=== PATIENT | male | born 1950 | race Caucasian/White ===

== ENCOUNTER 2017-01-18 16:14 | Inpatient (IN) | payer MEDICARE, MEDICAID ==
[~2017-01-18] VITALS: Ht 177.8 cm; Wt 65.8 kg
--- NOTE | ~2017-01-18 | FU ---
[facility] Nutrition Therapy DATE: 01/28/17 Patient: SHILA PEOPLES Physician: LISETTE Address: [address] [place] [address] Room/Bed: [address] [place] [address], Zip: [place] [address] Admit Date: 01/18/17 Date of : 50 Height: 5 10 Weight: 145 65.8 NUTRITION MONITORING/FOLLOW-UP: Reason: PT SEEN FOR FOLLOW-UP DX: BLADDER MASS Anthropometrics: 5'10", WT: 145# (65.9 KG), BMI: 20.8 -ADMIT WEIGHT: 145#-STABLE WEIGHTS Labs: NO UPDATED LABS SINCE RD ASSESSMENT ON 01/25/17 Meds: PROTONIX, ZOFRAN, LOVENOX I&O's: 600/855 Skin: NEW OSTOMY ABD Assessment: CHART REVIEWED AND EVENTS NOTED. PT SEEN FOR FOLLOW-UP. PT AWAKE REPORTING APPETITE IMPROVING, NOTING BEING ABLE TO TOLERATE PO INTAKE. PT HAD BREAKFAST TRAY AT BEDSIDE-NOTED PT ATE ~75% OF MEAL. OF NOTE, PT RECEIVING REGULAR DIET. THIS RD ENCOURAGED SLOW GRADUAL PO INTAKE, PT AGREED TO GLUCERNA SHAKES BID, RD TO ORDER. PT REPORTED NO DIET QUESTIONS AT THIS TIME. PLANS IN PLACE FOR HOME IN 1-[address] TO REMAIN AVAILABLE. Dx: 1. UNDERWEIGHT R/T LIFESTYLE, PMH AEB LOW BODY WEIGHT, 87%IBW.-ACTIVE 2. ALTERED NUTRIENT NEEDS R/T CURRENT DIAGNOSIS, CURRENT CLINICAL CONDITION AEB NPO/CLEARS X 5 DAYS.-RESOLVED Intervention: 1. REGULAR DIET 2. AFTAB GLUCERNA SHAKES BID Monitoring, Evaluation and Goals: 1. ORAL INTAKE; ADVANCE DIET AND CONSUME/TOLERATE >50% OF MEALS-MET/IN PROGRESS 2. WEIGHTS; PROMOTE HEALTHY WEIGHT MAINTENANCE; PREVENT WEIGHT [id number] HAVE REMAINED STABLE SINCE ADMIT 3. LABS; WNL-IN PROGRESS (NO UPDATED LABS SINCE ASSESSMENT ON 01/25/17) MONITOR: -PO INTAKE/APPETITE -WEIGHTS -SUPPLEMENT INTAKE Recommendations: 1. PLEASE ORDER AFTAB GLUCERNA SHAKES BID W/MEALS [facility] Nutrition Therapy DATE: 01/28/17 Patient: SHILA PEOPLES Physician: LISETTE Address: [address] [place] [address] Room/Bed: [address] [place] [address], Zip: [place] [address] Admit Date: 01/18/17 Date of : [birth year] Height: 5 10 Weight: 145 65.8 2. IF PO INTAKE >50%, RECOMMEND TO CHANGE CURRENT DIET ORDER CC/HH 2'PMH 3. CONTINUE TO ENCOURAGE ADEQUATE PO INTAKE RD WILL F/U PER PROTOCOL PT IS MILDLY COMPROMISED Respectfully, DMITRY SEVILLA MS, RD, LD Food and Nutritional Services [facility] cc: client file
--- NOTE | ~2017-01-18 | OR ---
Unit #: [id number] #: [id number] Patient: SHILA PEOPLES [id number] [address] [address] [id number] I MR#: [id number] NAME: SHILA PEOPLES ROOM: 227 Date of Procedure: 01/21/2017 Admission Date: 01/18/2017 Surgeon: Griffin Galindo M.D. : 1950 Attending Physician: Collette Boateng M.D. Primary Care Physician: Primary Care Physician No OPERATIVE REPORT PREOPERATIVE DIAGNOSES Muscle invasive bladder cancer, bilateral hydronephrosis, gross hematuria. POSTOPERATIVE DIAGNOSES Muscle invasive bladder cancer, bilateral hydronephrosis, gross hematuria. PROCEDURES PERFORMED Cystoprostatectomy, ileal conduit urinary diversion, bilateral pelvic lymphadenectomy. COURIER DRIVER Mercy Pena. ANESTHESIA General. ESTIMATED BLOOD LOSS 400 mL. FLUIDS Crystalloid, 2 units of packed red blood cells. DRAINS 15-Lithuanian Adarsh drain, ureteroenteric conduit stents bilaterally. COMPLICATIONS None. SPECIMENS Bilateral pelvic lymph nodes, prostate, bladder, bilateral ureteral margins for frozen section. CONDITION Stable. INDICATIONS FOR PROCEDURE The patient has a history of muscle invasive bladder cancer, bilateral hydronephrosis, and gross hematuria, who presents today for cystoprostatectomy, ileal conduit urinary diversion, pelvic lymphadenectomy. The risks, benefits, and alternatives of the procedure were extensively counseled to the patient. Chief among these are bleeding, infection, anesthetic complications, wound complications, blood Unit #: [id number] #: [id number] Patient: SHILA PEOPLES clot, heart attack, stroke, , injury to bowel, blood vessel, nerves, urine leak, urine stricture, bowel leak, bowel stricture, residual recurrent disease, tumor spillage, and need for further procedure. All risks were explained. Questions were answered. Informed consent was obtained. The patient elected to proceed. DESCRIPTION OF PROCEDURE The patient was properly identified, brought back to the operating room, having received perioperative dose of cefotetan. The patient was placed on the operating room table in a supine position. Following induction of general anesthesia, indwelling Millan catheter was removed. The patient's abdomen was shaved, prepped, and draped in sterile fashion on the field. A Millan catheter was then sterilely placed in the urinary bladder. Contents of the bladder were drained. A lower midline incision was carried out with a 10 blade scalpel. Soft tissue dissection was carried out with Bovie electrocautery. The anterior rectus sheath was opened, ____ , the rectus muscle and linea alba. I entered the retroperitoneal space, ____ this with blunt dissection. We entered the abdomen lateral of the urachus of the bladder, which was taken with silk ties. The peritoneum lateral to the medial umbilical ligaments were taken down with Bovie electrocautery. We began by placing Bookwalter retractor blades into the abdomen, lifting the bowel away from our area of dissection. We began by incising the peritoneum adjacent to the cecum exposing the dilated ureter circumferentially dissecting around this and tracing this down cranially towards the kidney and caudally toward the hiatus. This was then clamped with a right-angle clip. The ureter was then cut, small amount was collected for frozen section, which was benign. This was then clipped and tied off to develop hydronephrosis to aid in our ureteral anastomosis. The ureter at the hiatus was then taken with an 0 silk tie. The silk was left long to help guide us as we came around the lateral pedicle. A similar procedure occurred on the left side without difficulty. Again, frozen section was benign. We incised the peritoneum just above the sigmoid and the cul-de-sac behind the bladder as well as seminal vesicles. We made a plane with blunt dissection underneath the bladder to the level of the prostate, across the Denonvilliers' fascia with blunt dissection, developing a plane posteriorly with blunt dissection to the apex of the prostate. I isolated the neurovascular bundles of the lateral pedicle. The lateral pedicles were then taken in piecemeal fashion with the LigaSure. We then came anteriorly, took the DVC with the LigaSure as well. The endopelvic fascia was then opened up lateral to the prostate with Bovie electrocautery. We used Bovie electrocautery to enter the urethra anteriorly distal to the apex of the prostate. Millan catheter was grasped on the right angle, doubly clamped and cut. The posterior urethra was cut with Bovie electrocautery and the remaining prostatic attachments were taken in a piecemeal fashion with Bovie electrocautery and the specimen was then passed off. Copiously irrigated the wound. There was bleeding from the DVC, oversewn with #1 Vicryl in a [id number]-[id number] fashion. No evidence of rectal injury. Pelvic lymphadenectomy was performed on both sides tubing the lymph tissue medial to the external iliac vein marked from the pubic going back towards the iliac bifurcation, skeletonized the obturator nerve on both sides. Clips were used for adequate hemostasis in this case. No evidence of obturator injury was appreciated. No evidence of particularly suspicious nodes were appreciated. We then turned our attention to our left ureter which was hydronephrotic that were being clipped, this was then brought under the sigmoid near the sacral promontory in proper lie and orientation bringing both of our ureters to the right lower quadrant. We identified Unit #: [id number] #: [id number] Patient: SHILA PEOPLES the terminal ileum, traced this back conduit in standard fashion using LUCERO staplers. The bowel anastomosis was then completed using a LUCERO stapler and TIA stapler ensuring proper lie and orientation of both the conduit and the mesentery. The bowel anastomosis was at least two fingerbreadths in width. We placed 3-0 silk stitch at the butt of our staple line at our bowel anastomosis. We closed our mesenteric window with interrupted 3-0 silk. Our conduit was then inspected. No evidence of ischemic injury. We identified the butt of our conduit, cut off the staple line near our skin end and irrigated with an Asepto any succus that remained. We used Metzenbaum scissors to made two enterotomies on both sides near the bladder of the conduit, spatulated our ureter using an angled Pascal scissors. The excess ureter was passed off and discarded. We then completed our ureteroenteric anastomosis in standard fashion using running 5-0 PDS. Prior to completion of the anastomosis, ureteral conduit stents were then passed up into the right kidney without difficulty. These were anchored to the skin end of the conduit with 3-0 chromic ties. These were then irrigated with return of clear yellow urine suggesting adequate placement. Our anastomoses were then completed. We then tested these anastomosis by irrigating with an Asepto. At this point, in the right lower quadrant, just lateral to the umbilicus, we used a Reji to lift up on the skin just below our previously marked stomal site and we used Bovie electrocautery to excise the skin and subcutaneous fat. We made a cruciate incision in the fasciotomy pre-placed 2-0 Vicryl stitches, split the belly of the rectus muscle entered the abdomen ensuring that our opening was at least two fingerbreadths in width. We used a large Anshul and ensured proper lie and orientation of the conduit mesentery to grab the skin end of the conduit and pulled this through to our skin. We then placed our pre-placed 2-0 Vicryl stitches to the conduit anchoring this to the fascia and completed our rincon stoma in standard fashion using 3-0 and 4-0 Vicryl. This was a nice looking stoma. No evidence of ischemia. There was good urine output from both stents at this time. We then reinspected our DVC, placed an additional DVC stitch with [id number] #1 Vicryl. We felt there was adequate hemostasis. Placed FloSeal in the bed of resection. Placed CLEVE drain in left lower quadrant through a small stab incision placing this in the pelvis. We then ensured that our sponge, instrument, and needle count was correct. We then closed our fasciotomy using [id number] #1 Vicryl. The skin was then closed with nicole. The patient tolerated the procedure well with no complications. Dictated by... Griffin Galindo M.D. BITA/tasia TD: 01/23/2017 14:54 JOB #: [id number] OPERATIVE REPORT Page 1 of 1 X Griffin Galindo MD X PROCEDURE OPERATIVE NOTE
--- NOTE | ~2017-01-18 | CT57 ---
[facility] A Service of [facility] RADIOLOGY TEXT RESULTS PATIENT: SHILA PEOPLES LOCATION: [facility] : [birth year] UNIT #: [id number] AGE: [address]: Collette Boateng MD SEX: M ORDER DR: [id number] [place], [place] [address] [id number] I MR#: [id number] Acc #: [id number] NAME: SHILA PEOPLES : 1950 SEX: M STUDY DATE/TIME: 01/19/2017 20:06 UNIT: A PCU ROOM: 325 STUDY DESCRIPTION: CT Chest Wo Cont Attending Physician: Collette Boateng M.D. Ordering Physician: Collette Boateng M.D. Primary Care Physician: Primary Care Physician No MEDICAL IMAGING REPORT This report is preliminary unless electronic signature is present EXAM CT chest without contrast HISTORY 66-year-old male, shortness of air on exertion for 2 days. History of COPD. TURP procedure completed today, bladder mass. FINDINGS Axial images performed through the chest without contrast. Multiplanar reconstructions were reviewed. This CT exam was performed with one or more of the following radiation dose reduction techniques: automatic exposure control, adjustment of mA and/or kV according to patient size, and iterative reconstruction. There is pulmonary hyperinflation and hyperlucency with central lobular cystic changes compatible with underlying emphysema. No acute airspace disease or consolidation. No masses. There is a small amount of density in the right posterior lung but no discrete nodule. No effusions. Mild tracheobronchomegaly compatible with emphysema. Heart, aorta and pulmonary vessels unremarkable. Calcified left hilar nodes. Upper abdomen remarkable for bilateral hydronephrosis. Osseous structure, thoracic inlet unremarkable. IMPRESSION 1. No acute intrathoracic abnormality. 2. Moderate centrilobular emphysema. 3. Bilateral hydronephrosis. Dictated by... [facility] A Service of [facility] RADIOLOGY TEXT RESULTS PATIENT: SHILA PEOPLES LOCATION: [facility] : 50 UNIT #: [id number] AGE: [address]: Collette Boateng MD SEX: M ORDER DR: Marilyn Callahan M.D. THIS IS AN ELECTRONICALLY VERIFIED REPORT Marilyn Callahan M.D. at 01/21/2017 5:39 PM Jozef TD: 01/19/2017 22:23 JOB #: [id number] MEDICAL IMAGING REPORT Page 1 of 1 COPY
--- NOTE | ~2017-01-18 | CO ---
Unit #: [id number] #: [id number] Patient: SHILA PEOPLES [id number] [address] [address] [id number] I MR#: [id number] NAME: SHILA PEOPLES ROOM: 227 Age: 66 Sex: M Admission Date: 01/18/2017 : 1950 Attending Physician: Collette Boateng M.D. Primary Care Physician: Primary Care Physician No Consultation Date: 01/22/2017 CONSULTATION REPORT REASON FOR CONSULTATION Hypocalcemia. HISTORY OF PRESENT ILLNESS The patient is a 66-year-old white male, who is a known case of hypertension and chronic smoking, admitted with bilateral hydronephrosis and bladder tumor with Urology evaluation and underwent prostatectomy and cystectomy with ileal conduit. The patient also had ureteral stent placement initially, also history of hypertension and type 2 diabetes. The patient noted to have a potassium level of 6.9. We have been asked to follow up and advice on management. PAST MEDICAL HISTORY Significant for diabetes, hyperlipidemia, hypertension, history of chronic smoking, bladder CA. PAST SURGICAL HISTORY Underwent cystectomy, prostatectomy, and ileal conduit. HOME MEDICATIONS Include ibuprofen. ALLERGIES To penicillin. SOCIAL HISTORY Lives with his son and smoked 2-1/2 packs a day. Does not drink. FAMILY HISTORY Significant for dementia and type 2 diabetes. REVIEW OF SYSTEMS CVS: No chest pain. RESPIRATORY: No cough or expectoration. GI: As above. : As above. PHYSICAL EXAMINATION GENERAL: The patient is awake, alert, and oriented. VITAL SIGNS: Blood pressure is 110/50, O2 saturations 97%, heart rate is 80 per minute. HEENT: Head is atraumatic. Extraocular movements are intact. Sclerae are anicteric. Nose; no discharge. Ears; no discharge. NECK: Supple. There is no elevation of JVD. Unit #: [id number] #: [id number] Patient: SHILA PEOPLES CHEST: Clear. Air entry is equal bilaterally. Breathing is vesicular in nature. HEART: S1 and S2 audible. ABDOMEN: Soft. There is no organomegaly. No guarding. No rigidity. No rebound or tenderness. There is an ileal conduit with clear urine in the bag. EXTREMITIES: There is no edema. MECHANIC INSULATOR: Motor system is intact. Cerebellar system is intact. DIAGNOSTIC STUDIES LABORATORY RESULTS: Significant for sodium 141, potassium 3.8, chloride 113, CO2 22, BUN 20, creatinine 1.3, calcium 6.4, glucose 142. WBC is 5.2, H and H are 7.5 and 22.1 with a platelet count of 121, the patient getting blood transfusion. Albumin level is 2.6. IMPRESSION 1. Hypocalcemia, possibly an iatrogenic with blood transfusion causing the hypocalcemia. Check for vitamin D deficiency. Supplement calcium. We will follow the levels. Also, we will check ionized calcium. We will follow the patient with you. 2. Hypertension. 3. Diabetes. 4. Status post ileal conduit, prostatectomy, cystectomy for bladder cancer. Previous history of bilateral hydronephrosis. Acute kidney disease, resolving. 5. Acute kidney disease secondary to hydronephrosis improving with hydration and relief of obstruction. 6. Anemia. Dictated by... Shanell East TD: 01/23/2017 17:46 JOB #: [id number] CONSULTATION REPORT Page 1 of 1 X Clint Dickinson MD X CONSULTATION REPORT
--- NOTE | ~2017-01-18 | HP ---
Unit #: [id number] #: [id number] Patient: SHILA PEOPLES [id number] [place], [place] [address] [id number] I MR#: [id number] NAME: SHILA PEOPLES ROOM: 325 Age: 66 Sex: M Admission Date: 01/18/2017 : 1950 Attending Physician: Collette Boateng M.D. Primary Care Physician: No Primary Care Physician HISTORY AND PHYSICAL CHIEF COMPLAINT Blood in the urine. HISTORY OF PRESENT ILLNESS The patient is a 66-year-old male with no significant past medical history who presented to the emergency department for evaluation of the above. The patient states that he has had blood in the urine intermittently for the past six months to a year. He states that he has been passing blood clots at times. He also reports difficulty voiding due to the large clots. He also has had burning with urination. He denies any fever. He states that he has had pain in his lower abdomen that he describes as "throbbing." He denies any cough or cold symptoms, no chest pain. He states that he has been taking ibuprofen as well as ProstEase with no relief. In the emergency department, urinalysis showed findings concerning for urinary tract infection. Hemoglobin is 11.8. CT of the abdomen and pelvis shows a lobulate bladder mass, likely causing obstruction at the ureterovesicular junctions bilaterally with associated severe hydronephrosis. He was given a gram of Rocephin in the emergency department. Dr. Galindo of urology agreed to see the patient in consultation. He is being admitted to [facility] for evaluation and further treatment. PAST MEDICAL HISTORY The patient denies recent hospitalization. PAST SURGICAL HISTORY None. SOCIAL HISTORY The patient lives with his son. He smokes a pack and a half of cigarettes daily. He denies alcohol or illicit drug use. He is retired from a [employer] company. FAMILY HISTORY Notable for his mother having dementia. His dad had diabetes as well as a pacemaker. ALLERGIES Penicillin causes feelings of "dizziness." HOME MEDICATIONS Unit #: [id number] #: [id number] Patient: SHILA PEOPLES Ibuprofen as well as ProstEase. REVIEW OF SYSTEMS The patient states that he has been taking ibuprofen, anywhere from three to six tablets daily. DIAGNOSTIC STUDIES IMAGING: CT of the abdomen and pelvis shows a lobulated bladder mass causing obstruction at the UVJ bilaterally with severe hydronephrosis. LABORATORY: Complete blood count notable for hemoglobin and hematocrit of 11.8 and 34.3 respectively. Comprehensive metabolic panel notable for BUN and creatinine of 19 and 1.5 respectively. Urinalysis notable for 2+ leukocyte esterase, positive nitrates with 3+ protein, 4+ blood with innumerable red blood cells, 5-10 white blood cells, 1+ bacteria and a few squamous cells. INR is 1. PHYSICAL EXAMINATION VITAL SIGNS: Temperature is 98.4, pulse 103, respirations 16, blood pressure 165/115, most recently 148/78. Oxygen saturation is 100% on room air. GENERAL: The patient is a very pleasant male who is awake and alert, in no acute distress. HEENT: The head is atraumatic. Mucous membranes are moist. NECK: Supple. Trachea is midline. CARDIOVASCULAR: Regular rate and rhythm. LUNGS: Clear to auscultation bilaterally with no increased work of breathing. ABDOMEN: Soft. He is mildly tender to palpation in the suprapubic area. Bowel sounds are present in all four quadrants. EXTREMITIES: Nontender with no pedal edema. NEURO: The patient is awake and alert. He follows commands. PSYCH: Mood and affect are normal. The patient is cooperative. SKIN: Skin of examined areas is warm and dry. ASSESSMENT The patient is a 66-year-old male with: 1. Bladder mass concerning for malignancy. 2. Severe hydronephrosis. 3. Urinary tract infection: The patient received Rocephin in the emergency department. There are no urine cultures in [facility] for comparison. 4. Acute kidney injury: The patient's creatinine is 1.5. It was 1.1 on September 07, 2007. 5. Tobacco abuse. PLAN 1. Admit for observation to intermediate level. 2. Normal saline at 75 mL/hour. 3. Regular diet. 4. NPO after midnight for possible surgical intervention. 5. Place three-way Millan catheter and irrigate until clear. 6. Consult urology regarding bladder mass. 7. Blood cultures x2. 8. Urine culture and sensitivity on urine in the lab. Unit #: [id number] #: [id number] Patient: SHILA PEOPLES 9. Rocephin 1 gm IV daily pending results of urine culture. 10. P.r.n. morphine. 11. P.r.n. Zofran. 12. SCDs. 13. Repeat labs in the morning. 14. Additional workup and consultants based on above. Dictated by Shanell Macedo/stephanie TD: 01/19/2017 08:24 JOB #: [id number] HISTORY AND PHYSICAL Page 1 of 1 X Niesha Birmingham MD X HISTORY AND PHYSICAL
--- NOTE | ~2017-01-18 | A ---
[facility] Nutrition Therapy DATE: 01/25/17 Patient: SHILA PEOPLES Physician: LISETTE Address: [address] [place] [address] Room/Bed: [address] [place] [address], Zip: [place] [address] Admit Date: 01/18/17 Date of : [birth year] Height: 5 10 Weight: 145 65.8 NUTRITIONAL ASSESSMENT: REASON: NPO/CLEAR X 5 DAYS PT IS 66 Y.O. MALE ADMITTED FOR BLADDER MASS PMH: HTN, HLD, T2DM, BLADDER CA, SMOKER Anthropometrics: 5'10", WT: 145# (PER PT) (65.9 KG), BMI: 20.8, 87%IBW Labs: GLU: 120, NA+:131, CA+:8.1, ALB: 2.7, TGs: 179 Meds: PROTONIX, ZOFRAN, KCL I/O & Bowel function: 2485/2905 Skin Integrity: DRY SKIN NOTED ALL OVER BODY Estimated Nutrition Needs: INCREASED NEEDS 2' CURRENT CONDITION, PT LOW BODY WEIGHT Assessment: CHART REVIEWED AND EVENTS NOTED. PT SEEN FOR NPO/CLEAR DIET ORDER X 5 DAYS. PT IS POD #4 ILEAL CONDUIT, PROSTATECTOMY AND CYSTECTOMY FOR BLADDER CA. PT REPORTS "I AM STARVING". PT REPORTS USUAL GOOD/"NORMAL" PO INTAKE AND APPETITE PRIOR TO ADMIT, REPORTS SOME WEIGHT LOSS, NOTES UBW IS ~150#. NO CURRENT PLANS IN PLACE TO ADVANCE DIET, PER RN AND CHART. THIS RD ENCOURAGED SLOW GRADUAL PO INTAKE ONCE DIET ADVANCES, PT AGREED. PT REPORTED NO DIET QUESTIONS AT THIS TIME. RD TO FOLLOW. SEE RECOMMENDATIONS BELOW. Dx: 1. UNDERWEIGHT R/T LIFESTYLE, PMH AEB LOW BODY WEIGHT 87%IBW. 2. ALTERED NUTRIENT NEEDS R/T CURRENT DIAGNOSIS, CURRENT CLINICAL CONDITION AEB NPO/CLEAR X 5 DAYS. Intervention: 1. NPO Monitoring, Evaluation and Goals: 1. ORAL INTAKE; ADVANCE DIET AND CONSUME/TOLERATE >50% OF MEALS 2. WEIGHTS; PROMOTE HEALTHY WEIGHT MAINTENANCE; PREVENT WEIGHT LOSS 3. LABS; WNL MONITOR: -DIET ADVANCEMENT -PO INTAKE/APPETITE [facility] Nutrition Therapy DATE: 01/25/17 Patient: SHILA PEOPLES Physician: LISETTE Address: [address] [place] [address] Room/Bed: [address] [place] [address], Zip: [place] [address] Admit Date: 01/18/17 Date of : 50 Height: 5 10 Weight: 145 65.8 -WEIGHTS -LABS Recommendations: 1. ONCE MEDICALLY FEASIBLE, ADVANCE DIET TOLERATED TO HEALTHY HEART + CONSISTENT CARBOHYRDRATE 2' PMH, CURRENT CONDITION 2. PLEASE ORDER APPROPRIATE SUPPLEMENTATION ONCE DIET ADVANCES FOR ADDITIONAL PROTEIN AND KCAL 3. IF PT REMAINS NPO/CLEAR LIQUID, CONSULT RD FOR ALTERNATIVE NUTRITION SUPPORT RECOMMENDATIONS RD WILL F/U PER PROTOCOL PT IS MODERATELY COMPROMISED Respectfully, DMITRY SEVILLA MS, RD, LD Food and Nutritional Services [facility] cc: client file
--- NOTE | ~2017-01-18 | DS ---
Unit #: [id number] #: [id number] Patient: SHILA PEOPLES [id number] [address] [address] [id number] I MR#: [id number] NAME: SHIAL PEOPLES ROOM: 227 Age: 66 Sex: M Admission Date: 01/18/2017 : 1950 Discharge Date: 01/28/2017 Attending Physician: Collette Boateng M.D. Primary Care Physician: No Primary Care Physician DISCHARGE SUMMARY REASON FOR ADMISSION Gross hematuria. CT abdomen and pelvis showing bladder mass. HISTORY OF PRESENT ILLNESS/HOSPITAL COURSE The patient is a 66-year-old male, lifelong smoker of approximately 2-3 packs of cigarettes per day, who routinely was not following with any particular primary physician. He stated that he had hematuria for approximately three to four months prior to admission. It had worsened over the past several days prior to admission. He, therefore, presented to the hospital for further evaluation. Initial CT of the abdomen and pelvis was performed, which showed bladder mass as well as associated hydronephrosis. Consultation was placed to urology services, Dr. Galindo and saul, for evaluation. Through this hospital course the patient ultimately underwent cystoprostatectomy, ileal conduit, urinary diversion, as well as bilateral pelvic lymphadenectomy. Postoperatively he was maintained on routine medications as per surgery. He otherwise did well. He was gradually transitioned to p.o. medications. He has been cleared from a urological standpoint for discharge. It was also noted that the patient was hypocalcemic. We did place consultation to nephrology services, Dr. Marvin and associates saw and evaluated the patient. He initially was repleted with calcium and further laboratory studies were ordered and currently pending. At this point in time the patient is clinically stable for discharge. He will be followed by [facility] services. It is also recommended that he quit smoking altogether. He expressed understanding and agreement. He will follow up with Dr. Galindo of urology services in one to two weeks. No lifting. No driving for approximately two to three weeks or until seen by Dr. Galindo. Prescriptions were given for Bactrim DS 1 tablet p.o. b.i.d. times 7 days as well as Catharpin 5/325 mg 1-2 q.4 h. p.r.n. #30. Both prescriptions were given by urology. Prescription will also be given for Zoloft 50 mg on a daily basis. The patient will be discharged home in improved stable condition. FINAL DISCHARGE DIAGNOSES 1. Carcinoma of the bladder. 2. Associated hydronephrosis. 3. Hematuria on admission. 4. Tobacco abuse. 5. Status post ileal conduit placement urinary diversion. Unit #: [id number] #: [id number] Patient: SHILA PEOPLES Dictated by... Shanell Napoles/farhad TD: 01/30/2017 07:30 JOB #: [id number] DISCHARGE SUMMARY Page 1 of 1 X Collette Boateng MD X DISCHARGE SUMMARY
--- NOTE | ~2017-01-18 | CO ---
Unit #: [id number] #: [id number] Patient: SHILA PEOPLES [id number] [address] [address] [id number] I MR#: [id number] NAME: SHILA PEOPLES ROOM: 325 Age: 66 Sex: M Admission Date: 01/18/2017 : 1950 Attending Physician: Collette Boateng M.D. Primary Care Physician: Primary Care Physician No CONSULTATION REPORT CHIEF COMPLAINT Blood in urine. HISTORY OF PRESENT ILLNESS A 66-year-old gentleman with a history of heavy tobacco use, 6-month history of intermittent gross hematuria, worsened yesterday with clot, prompting visit to the emergency room at which time CT demonstrated a large bladder mass, bilateral hydronephrosis consistent with neoplasm. The patient's hematuria continued, occasional weakness of stream, hesitancy, intermittency over the last 6 months. No bone pain, weight loss, flank pain, fevers, or chills. PAST MEDICAL HISTORY As above. PAST SURGICAL HISTORY Cystoscopies. ALLERGIES Penicillin. MEDICATIONS None. SOCIAL HISTORY History of tobacco. No alcohol or recreational drugs. FAMILY HISTORY Liver cancer. REVIEW OF SYSTEMS The patient denies headache, vision change, hearing change, cough, sore throat, chest pain, shortness of breath, diarrhea, constipation, numbness or tingling in the extremities, rashes, or easy bruising. PHYSICAL EXAMINATION VITAL SIGNS: Afebrile. Vital signs stable. GENERAL: In no acute distress. HEENT: Normocephalic and atraumatic. Extraocular muscles intact grossly. Normal hearing to gross inspection. NECK: Soft, supple. No supraclavicular lymphadenopathy. RESPIRATORY: Normal respiratory effort. Normal to palpation. ABDOMEN: Soft, nontender, nondistended. No CVA tenderness. Unit #: [id number] #: [id number] Patient: SHILA PEOPLES EXTREMITIES: Full range of motion. Edema of bilateral extremities. PSYCHIATRIC: Normal mood and affect. NEUROLOGIC: Cranial nerves 2 through 12 grossly intact. DIAGNOSTIC STUDIES LABORATORY RESULTS: Creatinine 1.4. Alkaline phosphatase 60 within normal limits. Urinalysis, nitrite positive, innumerable red blood cells, 5 to 10 white blood cells, 1+ bacteria, a few epithelial cells. White blood cell count 5.4, hemoglobin 10.4. IMAGING STUDIES: CT of abdomen and pelvis reviewed hydronephrosis bilaterally, large bladder mass present. ASSESSMENT AND PLAN Bladder mass, hydronephrosis, renal failure, urinary tract infection, empiric antibiotics. Recommend transurethral resection, possible stent insertion. The risks, benefits, alternatives of the procedure were extensively counseled with the patient. Chief among these, bleeding, infection, inability to place stent, need for percutaneous nephrostomy tubes, bladder perforation, anesthetic complications. Informed consent was obtained. The patient elected to proceed. Dictated by... Griffin Galindo M.D. BITA/tasia TD: 01/19/2017 19:04 JOB #: [id number] CONSULTATION REPORT Page 1 of 1 X Griffin Galindo MD X CONSULTATION REPORT
--- NOTE | ~2017-01-18 | CT4 ---
[facility]. [facility] A Service of [facility] RADIOLOGY TEXT RESULTS PATIENT: SHILA PEOPLES LOCATION: [facility] : 50 UNIT #: [id number] AGE: [address]: Antonio Jernigan DO SEX: M ORDER DR: [id number] [facility] [address] [place], [place] [address] [id number] MR#: [id number] Acc #: [id number] NAME: SHILA PEOPLES : 1950 SEX: M STUDY DATE/TIME: 01/18/2017 17:20 UNIT: [facility] ROOM: STUDY DESCRIPTION: CT Abd and Pelv Wo Cont Attending Physician: Antonio Jernigan D.O. Ordering Physician: Antonio Jernigan D.O. Primary Care Physician: No Primary Care Physician MEDICAL IMAGING REPORT This report is preliminary unless electronic signature is present EXAM CT of abdomen and pelvis without contrast. HISTORY Right flank pain and hematuria for [address] exam was performed with one or more of the following radiation dose reduction techniques: automatic exposure control, adjustment of mA and/or kV according to patient size, and iterative reconstruction. FINDINGS CT abdomen and pelvis was performed without contrast. CT ABDOMEN: Moderate emphysema in both lung bases. Moderately severe bilateral hydronephrosis. Moderate bilateral ureteral dilatation. The liver, gallbladder, pancreas, and adrenal glands are normal. Normal caliber abdominal aorta. Borderline splenic enlargement. No bowel dilatation. CT PELVIS: Lobulated mixed density mass occupies the majority of the urinary bladder and measures nearly 5.5 cm x 7.5 cm. This contains probable small punctate and curvilinear calcifications. A hyperdense component along the anterior margin of this mass could be blood. Considerations include bladder neoplasm and bladder hematoma. Cystoscopy is recommended. The bladder lesion likely causes obstruction at the ureterovesical junctions bilaterally resulting in the severe bilateral hydronephrosis. No free fluid. No bowel dilatation. IMPRESSION 1. Lobulated mixed density bladder mass likely resulting in obstruction at the ureterovesical junctions bilaterally causing severe bilateral STS. [facility] A Service of [facility] RADIOLOGY TEXT RESULTS PATIENT: SHILA PEOPLES LOCATION: [facility] : 50 UNIT #: [id number] AGE: [address]: Antonio Jernigan DO SEX: M ORDER DR: hydronephrosis, and moderately severe bilateral ureteral dilatation. There are also curvilinear areas of calcification within the bladder along the mixed density bladder mass. Cystoscopy is recommended for further evaluation. The bladder lesion is concerning for neoplasm including transitional cell carcinoma. There may also be an element of hematoma within the urinary bladder. 2. No acute findings in the remainder of the abdomen or pelvis. 3. Moderate emphysema in the lung bases. Dictated by... Ankur Rowe M.D. THIS IS AN ELECTRONICALLY VERIFIED REPORT Ankur Rowe M.D. at 01/18/2017 8:44 PM IVAN/gissel TD: 01/18/2017 20:23 JOB #: [id number] MEDICAL IMAGING REPORT Page 1 of 1 COPY
--- NOTE | ~2017-01-18 | OR ---
Unit #: [id number] #: [id number] Patient: SHILA PEOPLES [id number] [address] [address] [id number] I MR#: [id number] NAME: SHILA PEOPLES ROOM: 325 Date of Procedure: 01/19/2017 Admission Date: 01/18/2017 Surgeon: Griffin Galindo M.D. : 1950 Attending Physician: Collette Boateng M.D. Primary Care Physician: Primary Care Physician No OPERATIVE REPORT PREOPERATIVE DIAGNOSES Bladder mass, bilateral hydronephrosis, and gross hematuria. POSTOPERATIVE DIAGNOSES Bladder mass, bilateral hydronephrosis, and gross hematuria with urethral stricture. PROCEDURES PERFORMED Cystourethroscopy, urethral dilation, and initial transurethral resection for bladder tumor, large. ANESTHESIA General. ESTIMATED BLOOD LOSS 50 mL. FLUIDS Crystalloid. DRAINS 22-Danish 3-way urethral Millan catheter. SPECIMENS Bladder clot and bladder mass for permanent. COMPLICATIONS None. CONDITION Stable. INDICATIONS FOR PROCEDURE The patient has a history of hematuria, who presented to the emergency room. CAT scan demonstrated large bladder mass and bilateral hydronephrosis. The patient presents today for cystoscopy, transurethral resection of bladder mass, and possible bilateral stent insertion. The risks, benefits, and alternatives of the procedure were extensively counseled to the patient. Chief among these were bleeding, infection, injury to surrounding soft tissue, need for further procedure, failure to place stent, need for percutaneous nephrostomy tube, bladder perforation, and anesthetic complications. Informed consent was obtained. The patient Unit #: [id number] #: [id number] Patient: SHILA PEOPLES elected to proceed. All risks were explained. Questions were answered. DESCRIPTION OF PROCEDURE The patient was properly identified, brought back to the cysto suite. He received preoperative dose of cephalosporins. The patient was placed on the cystoscopy table in supine position. Following induction of general anesthesia, the patient was placed in dorsal lithotomy position. Genitals were prepped and draped in sterile fashion. The cystoscope was introduced into the urethral meatus. Penile urethra was normal. Bulbar stricture with a pinpoint opening was appreciated. We passed a Sensor wire into the bladder under direct visualization. We used S-blue dilators to serially dilate the urethra. We introduced a continuous flow resectoscope. A large bladder mass obliterating the bladder neck and urinary trigone was appreciated with overlying bladder clot. We resected a great deal of this mass. This was very clearly muscle invasive, quite sessile in appearance, and truly unresectable given its large size. We resected a large amount of this, unable to visualize either ureteral orifices, fulgurated the base, evacuated the specimen, introduced a 22-Danish 3-way Millan catheter. CBI was started. The patient tolerated the procedure well with no complications. Dictated by... Shanell Bello/tasia TD: 01/19/2017 22:50 JOB #: [id number] OPERATIVE REPORT Page 1 of 1 X Griffin Galindo MD X PROCEDURE OPERATIVE NOTE
--- NOTE | ~2017-01-18 | EKG ---
PATIENT: SHILA PEOPLES UNIT #: [id number] Ventricular Rate: 78 BPM Atrial Rate: 78 BPM P-R Interval: 160 ms QRS Duration: 86 ms Q-T Interval: 366 ms QTC Calculation(Bezet): 417 ms P [place]: 63 degrees Calculated R [place]: 75 degrees Calculated T [place]: 45 degrees Diagnosis Line: Normal sinus rhythm Diagnosis Line: RSR' or QR pattern in V1 suggests right Diagnosis Line: ventricular conduction delay Diagnosis Line: Borderline ECG Diagnosis Line: No previous ECGs available Diagnosis Line: Confirmed by ÁLVARO GALDAMEZ MD ([id number]) on 01/21/2017 Diagnosis Line: 11:36:29 PM INTERPRETING MD: DENICE STRICKLAND
--- NOTE | ~2017-01-18 | CO ---
Unit #: [id number] #: [id number] Patient: SHILA VILLALTA [id number] [facility]. [address] [place], [place] [address] [id number] I MR#: [id number] NAME: SHILA VILLALTA ROOM: 325 Age: 66 Sex: M Admission Date: 01/18/2017 : 1950 Attending Physician: Collette Boateng M.D. Primary Care Physician: No Primary Care Physician Consultation Date: 01/20/2017 CONSULTATION REPORT REASON FOR CONSULTATION Cardiac clearance for surgery. HISTORY OF PRESENT ILLNESS This is a 66-year-old, white male with no significant health history reported. He does smoke 1 1/2 to 2 packs of cigarettes a day and has been smoking most of his adult life. He did report he had some type of stress test about 5 years ago and told it was normal. He has been having reports of bloody urine that has been worsening for about 6 months. He denies any pain, pain in his abdomen or pelvic area. He is having some difficulty urinating, and he said he has progressively been having more blood in his urine. He denies any chest pain, pain in his neck, bilateral jaws, shoulders, arms or elbows. He denies having any palpitations. No dizziness, pre-syncope or syncope. He denies any cough, fever or chills. In the emergency room he had a CT of the abdomen and pelvis that shows a bladder mass likely causing obstruction at the ureterovesical junction bilaterally with associated severe hydronephrosis. His hemoglobin is down to 11.8. Also, he was treated for a UTI. Dr. Galindo with urology was consulted. After examination and review of his scans, he feels that it is large bladder mass consistent with invasion. The plans are to have surgery tomorrow, cystoprostatectomy and ileal conduit. Before the surgery it was recommended to have cardiology evaluation to clear for the surgical intervention. PAST MEDICAL HISTORY 1. Denies hypertension, hyperlipidemia, diabetes mellitus. 2. Nicotine abuse. Smokes 1 1/2 to 2 packs of cigarettes a day. 3. According to the patient, had a stress test about 5 years ago. Told it was normal. PAST SURGICAL HISTORY None. HOME MEDICATIONS He takes occasional ibuprofen 200 to 400 mg p.r.n. ALLERGIES Penicillin causes him to feel dizzy. SOCIAL HISTORY The patient lives with his son. He, as mentioned, smokes a pack and a half to 2 packs a day. He denies alcohol or illicit drug abuse. He is retired from a [employer] company. Unit #: [id number] #: [id number] Patient: SHILA VILLALTA FAMILY HISTORY His mother had dementia, and his father had diabetes mellitus and a pacemaker. REVIEW OF SYSTEMS See details in the HPI. PHYSICAL EXAMINATION GENERAL: On exam, Mr. Villalta is a 66-year-old white male, in no acute respiratory distress. He is awake, alert and oriented. VITAL SIGNS: Blood pressure is 110/50, heart rate 80, respirations 16, temperature 97.7, O2 sats 100% on room air. NECK: Trachea midline. No thyromegaly or lymphadenopathy. Normal carotid upstrokes. No jugular venous distention. HEART: S1, S2. Distant heart sounds noted. LUNGS: Very diminished bilaterally. ABDOMEN: Soft, nontender. EXTREMITIES: Pedal pulses are palpable. No pedal edema. : He does have a TUR drip, and his Millan catheter has pink-tinged urine. DIAGNOSTIC STUDIES LABORATORY DIAGNOSTIC DATA: Today's labs - Glucose is 108, BUN 22, creatinine 1.6, eGFR 44.3, sodium 140, potassium 5, chloride 106, CO2 28, calcium 8.1, total protein 6.8, albumin 3.6, bili total 0.3, AST 20, ALT 16, alkaline phosphatase 60. WBC 4.7, hemoglobin 8.5 (down from admission of 11.8), hematocrit 24.5 today (down from 34.3), platelets are 117 (down from 161). Urinalysis shows 2+ leukocyte esterase, positive nitrites, 3+ protein, 0.2 urobilinogen, 4+ blood, innumerable RBCs, 5-10 WBCs and 1+ bacteria. Urine and blood cultures are pending. IMAGING: CT of the abdomen and pelvis without contrast shows mixed density bladder mass resulting in obstruction at the ureterovesical junction bilaterally causing severe bilateral hydronephrosis and moderately severe bilateral ureteral dilatation. Concern for neoplasm. Moderate emphysema in the lung bases. CT of the chest without contrast shows moderate centrilobular emphysema, bilateral hydronephrosis. CARDIOVASCULAR: EKG shows normal sinus rhythm with ventricular rate 78 beats per minute. Nondiagnostic Q waves in inferior leads. Slow R wave progression. IMPRESSION 1. Gross hematuria. 2. Bladder mass, likely cancer. Bilateral hydronephrosis. 3. COPD, emphysema on CT scan. 4. Nicotine abuse. 5. Anemia, like secondary to hematuria. 6. Normal stress test years ago, according to the patient. PLAN 1. Cardiology consulted to assist with evaluation and management. 2. On exam, there are no signs or symptoms of unstable angina or acute congestive heart failure. The patient says he does do a lot of walking without any anginal symptoms. We will obtain a two-D echo to Unit #: [id number] #: [id number] Patient: SHILA VILLALTA evaluate his LV function and valves. 3. Will obtain a fasting lipid profile and evaluate. 4. His EKG shows no ischemic changes. After review of his records and examination, Dr. Dozier feels it is permissible to undergo surgery at a [id number], but acceptable, risk. 5. Encourage the patient to completely quit smoking. Smoking cessation information provided to the patient. 6. The patient was typed and crossed with 2 units of packed red blood cells on hold. Thank you very much for allowing us to participate in his care. Further recommendations pending per Dr. Dozier. Dictated by... Marleen DiazPRanjanaRAleida for Shanell Glass/nurys TD: 01/20/2017 13:12 JOB #: [id number] CONSULTATION REPORT Page 1 of 1 X Shannan Thurman APRN CONSULTATION REPORT
[2017-01-18 17:11] LABS: URINE SOURCE CLEAN CATCH
[2017-01-18 17:21] LABS: BASOPHIL% 0.8 % (0-2.5); EOSINOPHIL# 0.1 X10e3 (0-0.7); EOSINOPHIL% 1.3 % (0.0-7.0); HEMATOCRIT 34.3 % (38.0-50.0); HEMOGLOBIN 11.8 gm/dL (13.0-16.0); LYMPHOCYTE# 1.3 X10e3 (1.0-3.5); LYMPHOCYTE% 26.6 % (17.0-45.0); MEAN CELL VOLUME 84.4 FL (83-96); MEAN CORPUSCULAR HEMOGLOBIN 28.9 PG (28-34); MEAN CORPUSCULAR HGB CONC 34.3 g/dL (30-36); MEAN PLATELET VOLUME 8.8 FL (6.5-11.5); MONOCYTE# 0.3 X10e3 (0-1.0); MONOCYTE% 7.1 % (3.0-12.0); NEUTROPHIL# 3.1 X10e3 (1.5-7.1); NEUTROPHIL% 64.2 % (40-75); PLATELET COUNT 161 X10e3 (140-420); RED BLOOD COUNT 4.06 X10e (3.90-5.60); RED CELL DISTRIBUTION WIDTH 14.2 % (11.0-15.5); WHITE BLOOD COUNT 4.9 X10e3 (4.0-10.5)
[2017-01-18 17:26] LABS: DIFF IND NO
[2017-01-18 17:36] LABS: PARTIAL THROMBOPLASTIN TIME 25.7 SECONDS (23.5-31.3); PROTHROMBIN TIME (PATIENT) 10.7 SECONDS (10.0-11.7)
[2017-01-18 17:41] LABS: URINE APPEARANCE TURBID; URINE COLOR RED; URINE GLUCOSE NEG (NEG); URINE KETONE NEG (NEG); URINE LEUKOCYTE ESTERASE 2+ (NEG); URINE NITRATE POS (NEG); URINE PROTEIN 3+ (NEG); URINE SPECIFIC GRAVITY 1.022 (1.003-1.035); URINE UROBILINOGEN 0.2 MG/DL (NEG)
[2017-01-18 17:43] LABS: URINE BLOOD 4+ (NEG)
[2017-01-18 17:44] LABS: ALBUMIN SERUM 4.1 g/dL (3.5-5.0); BILIRUBIN,TOTAL 0.6 mg/dL (0.2-2.0); BUN/CREATININE RATIO 12.66; CALCIUM SERUM 8.9 mg/dL (8.4-10.2); CREATININE SERUM 1.5 mg/dL (0.6-1.4); GLOM FILT RATE Estimated 47.8 mL/min (>60); PROTEIN TOTAL SERUM 7.7 g/dL (6.0-8.3)
[2017-01-18 17:48] LABS: URINE BILIRUBIN NEG (NEG)
[2017-01-18 17:49] LABS: CULTURE INDICATED? YES; URBCS1 AUWI INNUM /[HPF] (0-2); URINE BACTERIA AUWI 1+ (NEGATIVE); URINE SQUAMOUS EPITHELIAL CELL FEW /[HPF]
[2017-01-18] MEDS ORDERED: IBUPROFEN400 MG PO (19:47)
[2017-01-19 04:56] LABS: BASOPHIL% 0.4 % (0-2.5); DIFF IND NO; EOSINOPHIL% 0.5 % (0.0-7.0); HEMATOCRIT 29.9 % (38.0-50.0); HEMOGLOBIN 10.4 gm/dL (13.0-16.0); LYMPHOCYTE% 18.8 % (17.0-45.0); MEAN CELL VOLUME 84.6 FL (83-96); MEAN CORPUSCULAR HEMOGLOBIN 29.3 PG (28-34); MEAN CORPUSCULAR HGB CONC 34.6 g/dL (30-36); MEAN PLATELET VOLUME 8.7 FL (6.5-11.5); MONOCYTE# 0.3 X10e3 (0-1.0); NEUTROPHIL% 74.3 % (40-75); PLATELET COUNT 139 X10e3 (140-420); RED BLOOD COUNT 3.54 X10e (3.90-5.60); RED CELL DISTRIBUTION WIDTH 14.2 % (11.0-15.5); WHITE BLOOD COUNT 5.4 X10e3 (4.0-10.5)
[2017-01-19 05:58] LABS: ALBUMIN SERUM 3.6 g/dL (3.5-5.0); BILIRUBIN,TOTAL 0.3 mg/dL (0.2-2.0); BUN/CREATININE RATIO 14.28; CALCIUM SERUM 8.4 mg/dL (8.4-10.2); CREATININE SERUM 1.4 mg/dL (0.6-1.4); POTASSIUM 4.8 mmol/L (3.5-5.1); PROTEIN TOTAL SERUM 6.8 g/dL (6.0-8.3)
[2017-01-20 05:39] LABS: HEMATOCRIT 24.5 % (38.0-50.0); HEMOGLOBIN 8.5 gm/dL (13.0-16.0); MEAN CELL VOLUME 85.9 FL (83-96); MEAN CORPUSCULAR HEMOGLOBIN 29.7 PG (28-34); MEAN CORPUSCULAR HGB CONC 34.5 g/dL (30-36); MEAN PLATELET VOLUME 8.9 FL (6.5-11.5); RED BLOOD COUNT 2.85 X10e (3.90-5.60); RED CELL DISTRIBUTION WIDTH 14.4 % (11.0-15.5); WHITE BLOOD COUNT 4.7 X10e3 (4.0-10.5)
[2017-01-20 06:08] LABS: BUN/CREATININE RATIO 13.75; CALCIUM SERUM 8.1 mg/dL (8.4-10.2); CREATININE SERUM 1.6 mg/dL (0.6-1.4); GLOM FILT RATE Estimated 44.3 mL/min (>60)
[2017-01-20 06:23] LABS: POTASSIUM 5.5 mmol/L (3.5-5.1)
[2017-01-21 04:50] LABS: HEMATOCRIT 27.7 % (38.0-50.0); HEMOGLOBIN 9.4 gm/dL (13.0-16.0); MEAN CELL VOLUME 86.8 FL (83-96); MEAN CORPUSCULAR HEMOGLOBIN 29.4 PG (28-34); MEAN CORPUSCULAR HGB CONC 33.8 g/dL (30-36); MEAN PLATELET VOLUME 9.4 FL (6.5-11.5); RED BLOOD COUNT 3.19 X10e (3.90-5.60); RED CELL DISTRIBUTION WIDTH 14.6 % (11.0-15.5); WHITE BLOOD COUNT 5.4 X10e3 (4.0-10.5)
[2017-01-21 05:36] LABS: BUN/CREATININE RATIO 11.87; CALCIUM SERUM 8.1 mg/dL (8.4-10.2); CREATININE SERUM 1.6 mg/dL (0.6-1.4); GLOM FILT RATE Estimated 44.3 mL/min (>60); POTASSIUM 3.7 mmol/L (3.5-5.1)
[2017-01-21 18:06] LABS: BASOPHIL% 0.2 % (0-2.5); EOSINOPHIL% 0.1 % (0.0-7.0); HEMATOCRIT 23.7 % (38.0-50.0); HEMOGLOBIN 8.1 gm/dL (13.0-16.0); LYMPHOCYTE# 0.5 X10e3 (1.0-3.5); LYMPHOCYTE% 6.9 % (17.0-45.0); MEAN CELL VOLUME 87.6 FL (83-96); MEAN CORPUSCULAR HEMOGLOBIN 30.1 PG (28-34); MEAN CORPUSCULAR HGB CONC 34.3 g/dL (30-36); MEAN PLATELET VOLUME 8.4 FL (6.5-11.5); MONOCYTE# 0.3 X10e3 (0-1.0); MONOCYTE% 3.9 % (3.0-12.0); NEUTROPHIL# 6.9 X10e3 (1.5-7.1); NEUTROPHIL% 88.9 % (40-75); PLATELET COUNT 117 X10e3 (140-420); RED CELL DISTRIBUTION WIDTH 14.4 % (11.0-15.5); WHITE BLOOD COUNT 7.7 X10e3 (4.0-10.5)
[2017-01-21 18:07] LABS: DIFF IND NO
[2017-01-21 18:18] LABS: BUN/CREATININE RATIO 15.38; CALCIUM SERUM 6.4 mg/dL (8.4-10.2); CREATININE SERUM 1.3 mg/dL (0.6-1.4); GLOM FILT RATE Estimated 56.9 mL/min (>60); POTASSIUM 3.8 mmol/L (3.5-5.1)
[2017-01-22 05:09] LABS: HEMATOCRIT 22.1 % (38.0-50.0); HEMOGLOBIN 7.5 gm/dL (13.0-16.0); MEAN CELL VOLUME 86.3 FL (83-96); MEAN CORPUSCULAR HEMOGLOBIN 29.4 PG (28-34); MEAN PLATELET VOLUME 9.1 FL (6.5-11.5); RED BLOOD COUNT 2.56 X10e (3.90-5.60); RED CELL DISTRIBUTION WIDTH 14.8 % (11.0-15.5); WHITE BLOOD COUNT 5.2 X10e3 (4.0-10.5)
[2017-01-22 06:05] LABS: BUN/CREATININE RATIO 10.62; CALCIUM SERUM 6.9 mg/dL (8.4-10.2); CREATININE SERUM 1.6 mg/dL (0.6-1.4); GLOM FILT RATE Estimated 44.3 mL/min (>60); MAGNESIUM 1.7 mg/dL (1.6-3.0); PHOSPHOROUS 3.8 mg/dL (2.5-4.6); POTASSIUM 4.4 mmol/L (3.5-5.1)
[2017-01-23 06:16] LABS: HEMATOCRIT 30.9 % (38.0-50.0); MEAN CELL VOLUME 85.4 FL (83-96); MEAN CORPUSCULAR HEMOGLOBIN 29.9 PG (28-34); MEAN PLATELET VOLUME 9.3 FL (6.5-11.5); RED BLOOD COUNT 3.62 X10e (3.90-5.60); RED CELL DISTRIBUTION WIDTH 15.2 % (11.0-15.5); WHITE BLOOD COUNT 5.9 X10e3 (4.0-10.5)
[2017-01-23 06:17] LABS: HEMOGLOBIN 10.8 gm/dL (13.0-16.0)
[2017-01-23 07:01] LABS: ALBUMIN SERUM 2.7 g/dL (3.5-5.0); BILIRUBIN,TOTAL 0.6 mg/dL (0.2-2.0); BUN/CREATININE RATIO 7.85; CALCIUM SERUM 7.9 mg/dL (8.4-10.2); CREATININE SERUM 1.4 mg/dL (0.6-1.4); PHOSPHOROUS 2.7 mg/dL (2.5-4.6)
[2017-01-24 05:39] LABS: HEMATOCRIT 33.6 % (38.0-50.0); HEMOGLOBIN 11.7 gm/dL (13.0-16.0); MEAN CELL VOLUME 85.3 FL (83-96); MEAN CORPUSCULAR HEMOGLOBIN 29.7 PG (28-34); MEAN CORPUSCULAR HGB CONC 34.9 g/dL (30-36); MEAN PLATELET VOLUME 9.1 FL (6.5-11.5); RED BLOOD COUNT 3.94 X10e (3.90-5.60); RED CELL DISTRIBUTION WIDTH 15.1 % (11.0-15.5); WHITE BLOOD COUNT 8.3 X10e3 (4.0-10.5)
[2017-01-24 06:46] LABS: BUN/CREATININE RATIO 8.18; CALCIUM SERUM 9.2 mg/dL (8.4-10.2); CREATININE SERUM 1.1 mg/dL (0.6-1.4); GLOM FILT RATE Estimated 69.6 mL/min (>60); PHOSPHOROUS 3.7 mg/dL (2.5-4.6); POTASSIUM 4.2 mmol/L (3.5-5.1)
[2017-01-25 06:18] LABS: HEMATOCRIT 30.8 % (38.0-50.0); HEMOGLOBIN 10.8 gm/dL (13.0-16.0); MEAN CORPUSCULAR HEMOGLOBIN 29.5 PG (28-34); MEAN CORPUSCULAR HGB CONC 35.1 g/dL (30-36); MEAN PLATELET VOLUME 9.7 FL (6.5-11.5); RED BLOOD COUNT 3.67 X10e (3.90-5.60); RED CELL DISTRIBUTION WIDTH 15.4 % (11.0-15.5); WHITE BLOOD COUNT 6.9 X10e3 (4.0-10.5)
[2017-01-25 07:01] LABS: CALCIUM SERUM 8.1 mg/dL (8.4-10.2); GLOM FILT RATE Estimated 78.1 mL/min (>60); PHOSPHOROUS 3.3 mg/dL (2.5-4.6); POTASSIUM 4.2 mmol/L (3.5-5.1)
[2017-01-26 09:40] LABS: CALCIUM (PTHINTACT) 8.1 mg/dL (8.6-10.3)
[2017-01-28 09:30] LABS: CALCIUM (PTHINTACT) 9.4 mg/dL (8.6-10.3)
[2017-01-28] MEDS ORDERED: ZOLOFT50 MG PO (15:30)
[2017-01-28] MEDS ORDERED: HYDROCODON-ACE1 EAC9 PO (15:31)
[2017-01-28] MEDS ORDERED: BACTRIM DS TAB1 EACH PO (15:31)
[2017-01-29 02:21] LABS: CALCIUM (PTHINTACT) 8.3 mg/dL (8.6-10.3)
== END 2017-01-28 16:27 | disposition home or self-care (01) | DRG 657 ==
LOC: CED 16:14 → CEDOF 19:45 → C3A PCU 19:45 → CED 19:45 → CEDOF 19:55 → CED 19:55 → CEDOF 22:39 → C3A PCU 22:39 → C2A 01-23 17:33
PROVIDERS: Emergency Medicine; Family Medicine; Internal Medicine Cardiovascular Disease; Internal Medicine Nephrology; Urology
PROC: 07TC0ZZ Resection of Pelvis Lymphatic, Open Approach (ICD-10-PCS; 2017-01-19)
PROC: 0TBC8ZZ Excision of Bladder Neck, Via Natural or Artificial Opening Endoscopic (ICD-10-PCS; 2017-01-19)
PROC: 0T7D8ZZ Dilation of Urethra, Via Natural or Artificial Opening Endoscopic (ICD-10-PCS; 2017-01-19)
PROC: B246YZZ Ultrasonography of Right and Left Heart using Other Contrast (ICD-10-PCS; principal; 2017-01-20)
PROC: 0VB00ZZ Excision of Prostate, Open Approach (ICD-10-PCS; 2017-01-21)
PROC: 0T1807C Bypass Bilateral Ureters to Ileocutaneous with Autologous Tissue Substitute, Open Approach (ICD-10-PCS; 2017-01-21 15:00)
PROC: 30233N1 Transfusion of Nonautologous Red Blood Cells into Peripheral Vein, Percutaneous Approach (ICD-10-PCS; 2017-01-22)
DX: C67.5 Malignant neoplasm of bladder neck (principal); N13.1 Hydronephrosis with ureteral stricture, not elsewhere classified; N17.9 Acute kidney failure, unspecified; D69.6 Thrombocytopenia, unspecified; J44.9 Chronic obstructive pulmonary disease, unspecified; E87.1 Hypo-osmolality and hyponatremia; N39.0 Urinary tract infection, site not specified; D62 Acute posthemorrhagic anemia; E83.51 Hypocalcemia; Z88.0 Allergy status to penicillin; F17.210 Nicotine dependence, cigarettes, uncomplicated; I10 Essential (primary) hypertension; E11.9 Type 2 diabetes mellitus without complications; E78.5 Hyperlipidemia, unspecified; Z71.6 Tobacco abuse counseling; Z83.3 Family history of diabetes mellitus; E83.42 Hypomagnesemia
CPT/HCPCS: 36415; 36430; 71250; 74176; 80048; 80053; 80061; 81003; 82040; 82306; 82310; 82330; 82728; 83735; 83970; 84100; 84132; 84466; 85025; 85027; 85610; 85730; 86850; 86900; 86901; 86923; 87040; 87070; 87086; 87205; 88305; 88307; 88309; 88331; 93005; 93306; 94010; 94760; 96374; 99285; C2617; J0330; J0610; J0696; J1100; J1170; J1650; J1885; J2250; J2270; J2405; J2710; J3010; J3475; P9016

== ENCOUNTER 2017-02-12 22:34 | Emergency (ER) | payer MEDICAID ==
--- NOTE | ~2017-02-12 | CT2 ---
[facility] A Service of [facility] RADIOLOGY TEXT RESULTS PATIENT: SHILA PEOPLES LOCATION: [facility] : 50 UNIT #: [id number] AGE: [address]: Jose Alberto Johnson MD SEX: M ORDER DR: [id number] [facility] [address] [place], [place] [address] [id number] MR#: [id number] Acc #: [id number] NAME: SHILA PEOPLES : 1950 SEX: M STUDY DATE/TIME: 02/13/2017 1:51 UNIT: [facility] ROOM: STUDY DESCRIPTION: CT Abd and Pelv W Cont Attending Physician: Jose Alberto Johnson M.D. Ordering Physician: Keturah Laureano M.D. Primary Care Physician: No Primary Care Physician MEDICAL IMAGING REPORT This report is preliminary unless electronic signature is present EXAM CT abdomen and pelvis with IV contrast. HISTORY Nausea and vomiting and right-side abdomen pain for 2 weeks. Bladder resection on 01/21/2017. TECHNIQUE CT abdomen and pelvis was performed with IV contrast. This CT exam was performed with one or more of the following radiation dose reduction techniques: automatic exposure control, adjustment of mA and/or kV according to patient size, and iterative reconstruction. FINDINGS CT ABDOMEN: Mild emphysema in both lung bases. Small hiatal hernia. Mild bilateral hydronephrosis has decreased compared to CT 01/18/2017. The liver, gallbladder, pancreas, and adrenal glands are normal. Borderline splenic enlargement. Normal caliber abdominal aorta. No ascites. Mild dilatation of fluid-filled small bowel in the mid and lower abdomen. Right lower quadrant diverting ileostomy. CT PELVIS: Mild dilatation of several loops of fluid-filled small bowel in the pelvis. Cystectomy. No free fluid. IMPRESSION 1. Mild dilatation of fluid-filled small bowel in the mid and lower abdomen and upper pelvis could reflect mild small bowel ileus. No definite transition point is identified, but partial low grade distal small bowel obstruction is not excluded. The remainder the bowel caliber is normal. 2. Right lower quadrant ileostomy and urinary diversion. Cystectomy. 3. Mild bilateral hydronephrosis has decreased compared to CT STS. [facility] A Service of [facility] RADIOLOGY TEXT RESULTS PATIENT: SHILA PEOPLES LOCATION: [facility] : [birth year] UNIT #: [id number] AGE: [address]: Jose Alberto Johnson MD SEX: M ORDER DR: 01/18/2017. 4. Small hiatal hernia. 5. Mild emphysema in the lung bases. Dictated by... Ankur Rowe M.D. THIS IS AN ELECTRONICALLY VERIFIED REPORT Ankur Rowe M.D. at 02/13/2017 4:40 AM IVAN/harpal TD: 02/13/2017 02:42 JOB #: [id number] MEDICAL IMAGING REPORT Page 1 of 1 COPY
[~2017-02-12 22:34] MED LIST: BACTRIM DS TAB1 EACH PO; HYDROCODON-ACE1 EAC9 PO; IBUPROFEN400 MG PO; ZOLOFT50 MG PO
[2017-02-13 00:47] LABS: BASOPHIL% 0.4 % (0-2.5); EOSINOPHIL% 0.2 % (0.0-7.0); HEMATOCRIT 35.8 % (38.0-50.0); LYMPHOCYTE# 0.7 X10e3 (1.0-3.5); LYMPHOCYTE% 10.5 % (17.0-45.0); MEAN CELL VOLUME 84.8 FL (83-96); MEAN CORPUSCULAR HEMOGLOBIN 28.5 PG (28-34); MEAN CORPUSCULAR HGB CONC 33.6 g/dL (30-36); MEAN PLATELET VOLUME 9.1 FL (6.5-11.5); MONOCYTE# 0.2 X10e3 (0-1.0); MONOCYTE% 3.3 % (3.0-12.0); NEUTROPHIL# 5.5 X10e3 (1.5-7.1); NEUTROPHIL% 85.6 % (40-75); PLATELET COUNT 220 X10e3 (140-420); RED BLOOD COUNT 4.23 X10e (3.90-5.60); RED CELL DISTRIBUTION WIDTH 14.9 % (11.0-15.5); WHITE BLOOD COUNT 6.4 X10e3 (4.0-10.5)
[2017-02-13 00:48] LABS: DIFF IND NO
[2017-02-13 01:09] LABS: PROTHROMBIN TIME (PATIENT) 10.6 SECONDS (10.0-11.7)
[2017-02-13 01:17] LABS: ALBUMIN SERUM 4.1 g/dL (3.5-5.0); BILIRUBIN, DIRECT 0.1 mg/dL (0.0-0.2); BILIRUBIN,INDIRECT 0.9 mg/dL (0.0-0.9); BUN/CREATININE RATIO 17.5; CALCIUM SERUM 9.1 mg/dL (8.4-10.2); CREATININE SERUM 1.2 mg/dL (0.6-1.4); GLOM FILT RATE Estimated 62.7 mL/min (>60); POTASSIUM 4.4 mmol/L (3.5-5.1); PROTEIN TOTAL SERUM 7.9 g/dL (6.0-8.3)
[2017-02-13 01:24] LABS: URINE SOURCE CLEAN CATCH
[2017-02-13 01:31] LABS: URINE APPEARANCE CLOUDY; URINE BILIRUBIN NEG (NEG); URINE BLOOD 2+ (NEG); URINE COLOR YELLOW; URINE GLUCOSE NEG (NEG); URINE KETONE NEG (NEG); URINE LEUKOCYTE ESTERASE 3+ (NEG); URINE NITRATE POS (NEG); URINE PH 6.5 (5-8); URINE PROTEIN 1+ (NEG); URINE SPECIFIC GRAVITY 1.013 (1.003-1.035); URINE UROBILINOGEN 0.2 MG/DL (NEG)
[2017-02-13 01:34] LABS: CULTURE INDICATED? YES; URINE BACTERIA AUWI 4+ (NEGATIVE); URINE SQUAMOUS EPITHELIAL CELL OCC /[HPF]; UWBCS1 AUWI 100-200 (0-5)
== END 2017-02-13 03:35 | disposition home or self-care (01) ==
LOC: CED 22:34 → CFTX 23:44 → CED 23:44
PROVIDERS: Emergency Medicine
DX: R10.9 Unspecified abdominal pain (principal); E11.9 Type 2 diabetes mellitus without complications; I10 Essential (primary) hypertension; E78.5 Hyperlipidemia, unspecified; F17.200 Nicotine dependence, unspecified, uncomplicated; Z88.0 Allergy status to penicillin; Z79.899 Other long term (current) drug therapy
CPT/HCPCS: 36415; 74177; 80048; 80076; 81003; 83605; 85025; 85610; 85730; 87086; 87088; 87186; 96374; 96375; 99284; J1170; J2405; Q9967